=== PATIENT | female | born 1965 | race American Indian/Alaskan Native ===

== ENCOUNTER 2018-08-29 06:12 | Emergency (ER) | payer MEDICAID ==
[2018-08-29 06:19] VITALS: BP 153/92; PULSE 78; RESP 18; TEMP 98.3
--- NOTE | 2018-08-29 07:47 | C.PDOC ---
History Of Present Illness 53 years old female presents to ED for multiple complaints. Patient states she was kicked out of the long-term last night. Patient complaints of bilateral lower leg injury onset 1 week ago after a table at the long-term fell onto her. Patient is currently able to walk, but she states "still hurts." Patient also states she wants to be checked out "for everything." Patient also complaints of depression (unknown durarion). Denies SI/SA. MULT COMPLAINTS. PS WAS KICKED OUT OF [facility] LAST NIGHT. CO B/L LOWER LEG INJURY ONSET 1 WK AGO WHEN TABLE @ [facility] FELL ONTO HER. ABLE TO WALK "BUT STILL HURTS". ALSO STATES WANTS TO BE CHECKED OUT "FOR EVERYTHING". ALSO CO DEPRESSION UNK DURATION, DENIES SI/SA. EXAM TALKING ON CELL PHONE WO DIFF, APPEARS COMFORTABLE HEENT EXT AROM WO DIFF; ATRAUM NO FOCAL TEND; NO SWELL, NO BRUISING SKIN INTACT NEURO INTACT NO FOCAL DEF PSYCH CALM COOPERATIVE NO SI/SA, ACUTE INTOX, ACUTE PSYCHOSIS REMAINDER NEG MDM PT NOTED TO DELAY REMOVING PANTS, "I HAVE TO TAKE IT OFF IN MY TIME". C/W MALINGERING BEHAVIOR. NO ACUTE MEDICAL CONDITION @ THIS TIME. DC Time Seen by Provider: 08/29/18 07:11 Chief Complaint (Nursing): Medical Clearance History Per: Patient History/Exam Limitations: no limitations Onset/Duration Of Symptoms: Hrs Current Symptoms Are (Timing): Still Present Recent travel outside of the [place]: No Past Medical History Reviewed: Historical Data, Nursing Documentation, Vital Signs Vital Signs: Last Vital Signs Temp 98.3 F 08/29/18 06:18 Pulse 78 08/29/18 06:18 Resp 18 08/29/18 06:18 BP 153/92 H 08/29/18 06:18 Pulse Ox - Medical History PMH: Anxiety, Depression Surgical History: No Surg Hx Family History: States: No Known Family Hx - Social History Hx Alcohol Use: Yes Hx Substance Use: Yes - Immunization History Hx Tetanus Toxoid Vaccination: Yes Hx Influenza Vaccination: No Hx Pneumococcal Vaccination: No Review Of Systems Except As Marked, All Systems Reviewed And Found Negative. Constitutional: Negative for: Fever, Chills Gastrointestinal: Negative for: Nausea, Vomiting, Abdominal Pain, Diarrhea Musculoskeletal: Positive for: Other (Bilateral lower leg injury ) Skin: Negative for: Rash Neurological: Negative for: Weakness, Numbness Physical Exam - Physical Exam Appears: Non-toxic, No Acute Distress, Other (Talking on the phone with no difficulty. Comfortable. ) Skin: Normal Color, Warm, Dry, No Rash Head: Atraumatic, Normacephalic Eye(s): bilateral: Normal Inspection, PERRL, EOMI Ear(s): Bilateral: Normal Oral Mucosa: Moist Throat: Normal, No Erythema, No Exudate, No Drooling Neck: Decreased ROM, Supple Chest: Symmetrical, No Tenderness Cardiovascular: Rhythm Regular, No Murmur Respiratory: Normal Breath Sounds, No Rales, No Rhonchi, No Wheezing Gastrointestinal/Abdominal: Normal Exam, Soft, No Tenderness, No Distention Extremity: Normal ROM (Active with no difficulty ), No Swelling, Other (NO FOCAL TENDERNESS; NO BRUISING) Extremity: Bilateral: Atraumatic, Normal Color And Temperature, Normal ROM Pulses: Left Radial: Normal, Right Radial: Normal Neurological/Psych: Oriented x3, Normal Speech, Other (No focal deficit. Calm, cooperative; No SI/SA, acute intoxication; acute psychosis ) Medical Decision Making Medical Decision Making: Patient noted to Delay removing pants, "I have to take it off in my time." Patient consistent with malingering behavior. No acute medical condition at this time. Patient is currently stable for discharge and will be discharged. Care instructions provided and patient is in agreement. Denies any other complaints at this time. Return if symptoms persist or worsen. Disposition Counseled Patient/Family Regarding: Diagnosis, Need For Followup - Disposition Referrals: [facility] [Provider Group] [facility] [Outside] [facility] [Outside] Disposition: HOME/ ROUTINE Disposition Time: 08:30 Condition: GOOD Instructions: Contusion (DC) Forms: [employer] (Swedish) - Clinical Impression Clinical Impression: Medical assessment, Contusion of leg, Homeless - Scribe Statement The provider has reviewed the documentation as recorded by the Marisol Earl All medical record entries made by the Scribe were at my direction and personally dictated by me. I have reviewed the chart and agree that the record accurately reflects my personal performance of the history, physical exam, medical decision making, and the department course for this patient. I have also personally directed, reviewed, and agree with the discharge instructions and disposition.
== END 2018-08-29 08:46 | disposition home or self-care (01) ==
LOC: C.ER 06:12
DX: S80.10XA Contusion of unspecified lower leg, initial encounter (principal); W20.8XXA Other cause of strike by thrown, projected or falling object, initial encounter; Y92.099 Unspecified place in other non-institutional residence as the place of occurrence of the external cause; Z59.0 Homelessness